=== PATIENT | male | born 1935 | race Caucasian/White ===

== ENCOUNTER 2016-09-09 15:21 | Emergency (ER) | payer OTHER ==
[~2016-09-09] VITALS: Ht 162.6 cm; Wt 73.1 kg
[2016-09-09] MEDS ORDERED: ASPIRIN325 MG PO (16:43)
[2016-09-09 16:58] VITALS: BP 127/75
== END 2016-09-09 16:59 | disposition home or self-care (01) ==
LOC: EME 15:21
DX: I69.393 Ataxia following cerebral infarction (principal); I69.398 Other sequelae of cerebral infarction; H53.8 Other visual disturbances; R42 Dizziness and giddiness; R11.2 Nausea with vomiting, unspecified; I10 Essential (primary) hypertension; E78.5 Hyperlipidemia, unspecified
CPT/HCPCS: 99281; 99284

== ENCOUNTER 2017-05-11 12:18 | Observation (INO) | payer OTHER ==
[~2017-05-11] VITALS: Ht 162.6 cm; Wt 80.1 kg
[~2017-05-11 12:18] MED LIST: ASPIRIN325 MG PO
[2017-05-11 13:21] LABS: HEMATOCRIT 44.8 % (38.0-50.0); HEMOGLOBIN 15.2 G/DL (12.5-16.6); MCH 33.8 PG (29.0-34.0); MCHC 33.9 G/DL (30.0-36.0); MCV 99.6 FL (86-99); PLATELET COUNT 240 K/uL (156-360); RBC DIS.WIDTH-CV 13.5 % (11.8-14.6); RBC DIS.WIDTH-SD 49.4 % (39-53)
[2017-05-11 13:28] LABS: CHLORIDE 111 mEq/L (99-109); POTASSIUM 4.8 mEq/L (3.7-5.4); SODIUM 141 mEq/L (136-147)
[2017-05-11 13:30] LABS: GLUCOSE 102 mg/dL (70-99)
[2017-05-11 13:34] LABS: CREATININE 1.9 mg/dL (0.6-1.3); GFR ESTIMATE (CALCULATED) 36 mL/min/ (58.99-99999); UREA NITROGEN (BUN) 37 mg/dL (9-23)
[2017-05-11 13:39] LABS: TROP-I INTERPRETATION NEGATIVE; TROPONIN-I 0.07 ng/mL (0.0-0.30)
[2017-05-11 17:08] LABS: TROP-I INTERPRETATION NEGATIVE; TROPONIN-I 0.08 ng/mL (0.0-0.30)
[2017-05-11] MEDS ORDERED: GABAPENTIN100 MG PO (17:47)
[2017-05-11] MEDS ORDERED: SIMVASTATIN40 MG PO (17:47)
[2017-05-11] MEDS ORDERED: ULORIC40 MG PO (17:48)
[2017-05-11] MEDS ORDERED: LEVOTHYROXINE50 MCG PO (17:48)
[2017-05-11] MEDS ORDERED: METOPROLOL SUCC50 MG PO (17:49)
[2017-05-11] MEDS ORDERED: CYANOCOBALAM1000 MCG PO (17:50)
[2017-05-11] MEDS ORDERED: VITAMIN B-6100 MG PO (17:51)
[2017-05-11] MEDS ORDERED: ASPIRIN325 MG PO (17:51)
[2017-05-11] MEDS ORDERED: LEVO-T50 MCG PO (17:53)
[2017-05-11 19:28] LABS: TROP-I INTERPRETATION NEGATIVE; TROPONIN-I 0.08 ng/mL (0.0-0.30)
[2017-05-12 00:16] VITALS: BP 159/102
[2017-05-12 04:05] VITALS: BP 120/90
[2017-05-12 06:02] LABS: HEMATOCRIT 43.6 % (38.0-50.0); HEMOGLOBIN 14.4 G/DL (12.5-16.6); MCH 32.7 PG (29.0-34.0); MCV 99.1 FL (86-99); PLATELET COUNT 221 K/uL (156-360); RBC DIS.WIDTH-CV 13.5 % (11.8-14.6); RBC DIS.WIDTH-SD 49.4 % (39-53); WHITE BLOOD COUNT 5.9 K/uL (4.1-10.2)
[2017-05-12 06:12] LABS: CHLORIDE 110 MEQ/L (99-109); POTASSIUM 4.6 MEQ/L (3.7-5.4); SODIUM 143 MEQ/L (136-147)
[2017-05-12 06:17] LABS: CREATININE 1.5 MG/DL (0.6-1.3); GFR ESTIMATE (CALCULATED) 48 mL/min/ (58.99-99999); GLUCOSE 103 mg/dL (70-99); UREA NITROGEN (BUN) 33 mg/dL (9-23)
[2017-05-12 06:22] LABS: TROP-I INTERPRETATION NEGATIVE; TROPONIN-I 0.09 ng/mL (0.0-0.30)
[2017-05-12 08:05] VITALS: BP 169/87
[2017-05-12 11:39] VITALS: BP 110/73
[2017-05-12 12:42] LABS: TROP-I INTERPRETATION NEGATIVE
[2017-05-12 16:11] VITALS: BP 139/77
[2017-05-12 19:12] VITALS: BP 108/69
[2017-05-13 00:02] VITALS: BP 120/80
[2017-05-13 04:12] VITALS: BP 109/72
[2017-05-13 08:35] VITALS: BP 145/85
[2017-05-13 12:35] VITALS: BP 129/85
[2017-05-13] MEDS ORDERED: ELIQUIS2.5 MG PO (14:42)
== END 2017-05-13 15:51 | disposition home or self-care (01) ==
LOC: EME 12:18 → EDOF 20:29 → 5WEST 20:29 → ENRESERV 20:32 → 5WEST 22:03
PROVIDERS: Hospitalist; Nurse Practitioner Family
DX: I48.91 Unspecified atrial fibrillation (principal); R07.9 Chest pain, unspecified; Z86.73 Personal history of transient ischemic attack (TIA), and cerebral infarction without residual deficits; I11.9 Hypertensive heart disease without heart failure; E78.5 Hyperlipidemia, unspecified; E78.00 Pure hypercholesterolemia, unspecified; E66.9 Obesity, unspecified; Z79.82 Long term (current) use of aspirin; Z90.49 Acquired absence of other specified parts of digestive tract; Z87.891 Personal history of nicotine dependence
CPT/HCPCS: 70450; 71046; 80048; 84484; 85027; 93005; 99281; 99285; G0378

== ENCOUNTER → 2017-10-03 | Outpatient (CLI) | payer MEDICARE ==
[~2017-10-03] MED LIST changes: +CYANOCOBALAM1000 MCG PO; +ELIQUIS2.5 MG PO; +GABAPENTIN100 MG PO; +LEVO-T50 MCG PO; +LEVOTHYROXINE50 MCG PO; +METOPROLOL SUCC50 MG PO; +SIMVASTATIN40 MG PO; +ULORIC40 MG PO; +VITAMIN B-6100 MG PO
== END | disposition home or self-care (01) ==
LOC: CDC 12:34
DX: Z01.810 Encounter for preprocedural cardiovascular examination (principal); I48.91 Unspecified atrial fibrillation
CPT/HCPCS: 93000